=== PATIENT | male | born 1940 | race Caucasian/White ===

== ENCOUNTER 2018-05-09 12:23 | Inpatient (IN) ==
--- NOTE | 2018-05-09 12:31 | Emergency Department Note ---
Disposition Clinical Impression: Pleural effusion Disposition: Admitted As Inpatient Condition: Good Referrals: Kassandra Romero MD [Primary Care Provider] - Forms: ED Satisfaction Letter Time of Disposition: 12:33 General Adult HPI - General Chief complaint: ED Shortness of Breath/Dyspnea Stated complaint: BLANQUITA/Fluid on lung Time Seen by Provider: 05/09/18 12:25 Source: patient, family Mode of arrival: ambulatory Limitations: no limitations Nursing Notes Reviewed: Yes Vital Signs Reviewed: Yes - History of Present Illness HPI Narrative: 77 year old male presnte to the ED with complaints of right sided chest pain. He staets that this has been going on since and that it has not improved and denies fevers, productive cough, history of lung cancer, smoking, or hemopytosis. Nancy states that this has been preogressive with his dyspnea although he has not been hypoxic. Piero taes that he was having an outpatient CT and it appears that his right lung has a large pleural efffusions and it is almost opacifified. Nancy was sent to the eD for evlaution for thoracentesis and admission. Nancy is resting comfortably with stable vital and is in no acute distress. - Related Data Home Medications Medication Instructions Recorded Confirmed Metformin HCl [Glucophage] 1,000 mg PO BID 05/03/17 05/09/18 Insulin Glargine [Lantus] 14 unit SQ QPM 05/09/18 05/09/18 Allergies Allergy/AdvReac Type Severity Reaction Status Date / Time No Known Allergies Allergy Verified 07/31/17 14:44 Constitutional: Denies: fever, chills, weakness, weight change Eyes: Denies: eye pain, eye discharge, vision change ENT ED: Denies: ear pain, throat pain, dental pain, hearing loss, epistaxis, congestion, dysphagia Cardiovascular: Reports: chest pain. Denies: palpitations, dyspnea on exertion , edema, syncope Respiratory: Reports: dyspnea. Denies: cough, wheezes, hemoptysis, stridor Gastrointestinal: Denies: abdominal pain, nausea, vomiting, diarrhea, constipation, hematemesis, melena, hematochezia Genitourinary: Denies: urgency, dysuria, frequency, hematuria Musculoskeletal: Denies: back pain, neck pain, arthralgia, myalgia Integumentary: Denies: rash, abrasion, lesions Neurological: Denies: headache, weakness, numbness, paresthesias, confusion, abnormal gait, vertigo Psychiatric: Denies: anxiety, depression, suicidal thoughts, homicidal thoughts , auditory hallucinations, visual hallucinations Endocrine: Denies: fatigue Hematological/Lymphatic: Denies: easy bleeding, easy bruising Allergic/Immunologic: Denies: facial swelling, urticaria Past Medical History - Past Medical History Medical history: Reports: diabetes Psychiatric history: Reports: no psych history - Social History Smoking Status: Former smoker Smokeless Tobacco Status: No Alcohol use: Reports: rarely Drug use: Reports: none Physical Exam - General Limitations: no limitations General appearance: alert, in no apparent distress - Head Head exam: atraumatic, normocephalic, normal inspection - Eye Eye exam: Present: normal appearance, PERRL, EOMI - Expanded Eye Exam Pupils: Bilateral: reactive - ENT ENT exam: normal exam, normal oropharynx, mucous membranes moist - Expanded ENT Exam External ear exam: Present: normal external inspection Mouth exam: Present: normal external inspection Teeth exam: Present: normal inspection Throat exam: Present: normal inspection - Neck Neck exam: Present: normal inspection, full ROM, trachea midline - Chest Chest inspection: Present: normal inspection, symmetric chest wall rise - Respiratory Respiratory exam: Present: other (decreased breath sounds on the right). Absent : respiratory distress, wheezes, stridor, accessory muscle use, prolonged expiratory phase - Cardiovascular Cardiovascular exam: Present: regular rate, normal rhythm, normal heart sounds - Abdominal Exam Abdominal exam: Present: soft, Non-Tender. Absent: tenderness, distention, guarding, rebound, rigidity - Extremities Exam Extremities exam: Present: normal inspection, full ROM. Absent: tenderness, pedal edema - Expanded Upper Extremity Exam Shoulder exam: Present: normal inspection, full ROM Arm exam: Present: normal inspection, full ROM Elbow exam: Present: normal inspection, full ROM Forearm/Wrist exam: Present: normal inspection, full ROM Hand exam: Present: normal inspection, full ROM Vascular exam: Normal: capillary refill, radial pulse - Expanded Lower Extremity Exam Hip/Pelvis exam: Present: normal inspection, full ROM Upper leg exam: Present: normal inspection, full ROM Knee exam: Present: normal inspection, full ROM Lower leg exam: Present: normal inspection, full ROM Ankle exam: Present: normal inspection, full ROM Foot/toe exam: Present: normal inspection, full ROM Neurovascular/Tendon exam: Absent: motor deficit, sensory deficit, tendon deficit - Back Exam Back exam: Present: normal inspection, full ROM. Absent: tenderness - Neurological Exam Neurological exam: Present: alert, oriented X3 - Expanded Neurological Exam Patient oriented to: Present: person, place, time Coma Scale Eye Opening: Spontaneous Coma Scale Motor Response: Obeys Commands Coma Scale Verbal Response: Oriented Coma Scale Total: 15 - Psychiatric Psychiatric exam: Present: normal affect, normal mood - Skin Skin exam: Present: warm, dry, intact, normal color Course Course Narrative: we will do cardiopulmonary workup and then consult IR for thoracentesis or chest tube placement for drainaige of material. Then admit to medicine. - Reevaluation(s) Reevaluation #1: updated patinet and family and they are agreeable to plan Time: 13:34 - Consultations Consultation #1: dicussed case with Dr. Ribeiro (IR) who will be draining him today. WE will admit to medicine. I have placed orderes for pleural fluid. Patient is in no acute distress. Time: 13:06 Consultation #2: discussed case with Dr. Dsouza and he has accepted patine to this service Time: 13:34 Vital Signs Temperature 97.7 F 05/09/18 12:24 Pulse Rate 77 05/09/18 12:24 Respiratory Rate 18 05/09/18 12:24 Blood Pressure 136/97 05/09/18 12:24 O2 Sat by Pulse Oximetry 95 05/09/18 12:24 Temperature 97.7 F 05/09/18 12:24 Pulse Rate 77 05/09/18 12:24 Respiratory Rate 18 05/09/18 12:24 Blood Pressure 136/97 05/09/18 12:24 O2 Sat by Pulse Oximetry 94 05/09/18 12:41 Oxygen Delivery Oxygen Delivery Room Air Medical Decision Making - Medical Records Medical records reviewed: Yes I reviewed the patient's medical records. - Lab Data Lab results reviewed: Yes I reviewed the patient's lab results. Result diagrams: 05/09/18 12:39 05/09/18 12:39 Lab Results 05/09/18 05/09/18 05/09/18 Range/Units 12:39 12:39 12:39 WBC (4.3-11.1) K/mcL RBC (4.19-5.50) M/mcL Hgb (12.9-16.9) g/dL Hct (37.5-50.1) % MCV (83.0-100.0) fL MCH (28.0-33.3) pg MCHC (31.6-35.5) g/dL RDW (11.5-14.5) % Plt Count (140-400) K/mcL MPV (9.4-12.4) fL Immature Gran % (0-4) % Seg Neutrophils % % Lymphocytes % % Monocytes % % Eosinophils % % Basophils % % Neutrophils # (1.6-8.9) K/mcL Lymphocytes # (0.6-4.6) K/mcL Monocytes # (0.0-1.3) K/mcL Eosinophils # (0.0-0.6) K/mcL Basophils # (0.0-0.2) K/mcL PT 12.0 (9.4-12.1) Seconds INR 1.1 APTT 32.8 (26.0-36.0) Seconds Sodium (136-145) mEq/L Potassium (3.5-5.1) mEq/L Chloride (98-107) mEq/L Carbon Dioxide (23-29) mEq/L BUN (8-23) mg/dL Creatinine (0.70-1.30) mg/dL Est GFR ( Amer) (> 60) Est GFR (Non-Af Amer) (> 60) BUN/Creatinine Ratio (6-26) Glucose (70-105) mg/dL Calculated Osmolality (280-300) Calcium (8.6-10.3) mg/dL Total Bilirubin 0.5 (0.3-1.0) mg/dL Direct Bilirubin 0.1 (0.0-0.2) mg/dL Indirect Bilirubin 0.4 (0.0-1.2) mg/dL AST 10 L (13-39) Units/L ALT 6 L (7-52) Units/L Alkaline Phosphatase 89 (34-104) Units/L Troponin I (< 0.04) ng/mL B-Natriuretic Peptide 18 (Less than 100) pg/mL Serum Total Protein 6.6 (6.4-8.9) g/dL Albumin 3.8 (3.5-5.7) g/dL Globulin 2.8 (2.4-3.5) g/dL Albumin/Globulin Ratio 1.4 (1.1-2.2) Lipase 35 (11-82) Units/L 05/09/18 05/09/18 Range/Units 12:39 12:39 WBC 6.2 (4.3-11.1) K/mcL RBC 5.28 (4.19-5.50) M/mcL Hgb 16.5 (12.9-16.9) g/dL Hct 50.4 H (37.5-50.1) % MCV 95.5 (83.0-100.0) fL MCH 31.3 (28.0-33.3) pg MCHC 32.7 (31.6-35.5) g/dL RDW 12.6 (11.5-14.5) % Plt Count 231 (140-400) K/mcL MPV 10.1 (9.4-12.4) fL Immature Gran % 0.2 (0-4) % Seg Neutrophils % 62.1 % Lymphocytes % 22.8 % Monocytes % 7.3 % Eosinophils % 6.3 % Basophils % 1.3 % Neutrophils # 3.8 (1.6-8.9) K/mcL Lymphocytes # 1.4 (0.6-4.6) K/mcL Monocytes # 0.5 (0.0-1.3) K/mcL Eosinophils # 0.4 (0.0-0.6) K/mcL Basophils # 0.1 (0.0-0.2) K/mcL PT (9.4-12.1) Seconds INR APTT (26.0-36.0) Seconds Sodium 138 (136-145) mEq/L Potassium 4.3 (3.5-5.1) mEq/L Chloride 106 (98-107) mEq/L Carbon Dioxide 25 (23-29) mEq/L BUN 17 (8-23) mg/dL Creatinine 1.08 (0.70-1.30) mg/dL Est GFR ( Amer) > 60 (> 60) Est GFR (Non-Af Amer) > 60 (> 60) BUN/Creatinine Ratio 16 (6-26) Glucose 193 H (70-105) mg/dL Calculated Osmolality 293 (280-300) Calcium 8.8 (8.6-10.3) mg/dL Total Bilirubin (0.3-1.0) mg/dL Direct Bilirubin (0.0-0.2) mg/dL Indirect Bilirubin (0.0-1.2) mg/dL AST (13-39) Units/L ALT (7-52) Units/L Alkaline Phosphatase (34-104) Units/L Troponin I < 0.03 (< 0.04) ng/mL B-Natriuretic Peptide (Less than 100) pg/mL Serum Total Protein (6.4-8.9) g/dL Albumin (3.5-5.7) g/dL Globulin (2.4-3.5) g/dL Albumin/Globulin Ratio (1.1-2.2) Lipase (11-82) Units/L - Radiology Data Radiology results reviewed: Yes I reviewed the patient's radiology results. - EKG Data EKG #1 EKG attestation: Yes I reviewed and interpreted this EKG. EKG results narrative: NSR with rate of 77, NO STEMI. normla intervals. no old ekg. 1228
[2018-05-09 13:14] LABS: Albumin 3.8 g/dL (3.5-5.7); Albumin/Globulin Ratio 1.4 (1.1-2.2); Bilirubin,Direct 0.1 mg/dL (0.0-0.2); Bilirubin,Indirect 0.4 mg/dL (0.0-1.2); Bilirubin,Total 0.5 mg/dL (0.3-1.0); Globulin 2.8 g/dL (2.4-3.5); Total Protein 6.6 g/dL (6.4-8.9)
[2018-05-09 13:16] LABS: BUN/Creatinine Ratio 16 (6-26); Blood Urea Nitrogen 17 mg/dL (8-23); Calcium 8.8 mg/dL (8.6-10.3); Carbon Dioxide 25 mEq/L (23-29); Chloride 106 mEq/L (98-107); Glucose 193 mg/dL (70-105); Osmolality,Calculated 293 (280-300); Potassium 4.3 mEq/L (3.5-5.1); Sodium 138 mEq/L (136-145); eGFR For African Americans > 60 (> 60); eGFR For Non-African Americans > 60 (> 60)
[2018-05-09 13:17] LABS: Basophils # 0.1 K/mcL (0.0-0.2); Basophils % 1.3 %; Eosinophils # 0.4 K/mcL (0.0-0.6); Eosinophils % 6.3 %; Hematocrit 50.4 % (37.5-50.1); Hemoglobin 16.5 g/dL (12.9-16.9); Immature Granulocytes % 0.2 % (0-4); Lymphocytes # 1.4 K/mcL (0.6-4.6); Lymphocytes % 22.8 %; Mean Corpuscular HGB Conc 32.7 g/dL (31.6-35.5); Mean Corpuscular Hemoglobin 31.3 pg (28.0-33.3); Mean Corpuscular Volume 95.5 fL (83.0-100.0); Mean Platelet Volume 10.1 fL (9.4-12.4); Monocytes # 0.5 K/mcL (0.0-1.3); Monocytes % 7.3 %; Neutrophils # 3.8 K/mcL (1.6-8.9); Platelet Count 231 K/mcL (140-400); Red Blood Count 5.28 M/mcL (4.19-5.50); Red Cell Distribution Width 12.6 % (11.5-14.5); Segmented Neutrophils % 62.1 %; Troponin I < 0.03 ng/mL (< 0.04)
[2018-05-09 13:23] LABS: INR 1.1
[2018-05-09 13:26] LABS: Activated Partial Thrombo Time 32.8 Seconds (26.0-36.0)
[2018-05-09] MEDS ORDERED: D5% in Water 1,000 ML IVC PRN (13:57)
[2018-05-09] MEDS ORDERED: *HR* Dextrose 50 % in Water (Syg) 50 ML SYRINGE IVP PRN (13:57)
[2018-05-09] MEDS ORDERED: Naloxone 0.4 MG/ML INJ IVP PRN (13:57)
[2018-05-09] MEDS ORDERED: Dextrose Gel 15 GM/37.5 ML TUBE PO PRN ×2 (13:57)
[2018-05-09] MEDS ORDERED: Isovue-370 500 ML INFUS..BTL IV ONE (13:59)
--- NOTE | 2018-05-09 14:08 | Internal Med History&Physical ---
Date of Encounter: 05/09/18 Time of Encounter: 14:04 Internal Medicine - H&P: HPI Chief complaint: Shortness of breath History of present illness: Mr. Francis is a 77 year old male who presents with acute onset of shortness of breath found to have a large right-sided pleural effusion suspicious for malignant effusion. He reports progressive shortness of breath since last that had been worsening over the last day to the extent that he was not able to ambulate around his house without getting winded. He denies any fevers chills or symptoms of infection. On review of symptoms he denies any bone or body aches He is a retired schoolteacher teacher and has denied history of chronic smoking. He smoked for 4 years less than a pack a day while in college but had quit more than 50 years ago. He reports that he might have asbesto exposure in his school. He has a family history of breast cancer in his mother, back cancer in her father and lung cancer in a sister who smoked EKG personally reviewed with rate 77, normal sinus rhythm CT/CT angio chest IMPRESSION: 1. Large right pleural effusion with near complete collapse of the right upper, middle, and lower lobes. 2. Questionable prominent soft tissue in the right perihilar region. Underlying mass cannot be excluded. Evaluation is limited by a large pleural effusion and right lung collapse. 3. Lucent lesion in the T12 vertebral body, concerning for metastatic disease. Nonspecific lesions are also seen in the T9 and T1 vertebral bodies as described. 4. Ill-defined hypodensity in the right hepatic lobe measuring 13 , incompletely visualized and characterized. Finding is concerning for malignancy given the additional findings in the chest and bones. Dedicated CT of the abdomen and pelvis with IV contrast versus PET/CT is recommended to assess for other sites of malignancy. 5. No pulmonary embolus. Past Med Surg Social Fam HX - Past Medical History Medical history: diabetes Psychiatric history: no psych history - Past Surgical History Surgical History: no surgical history - Social History Smoking Status: Former smoker Smokeless Tobacco Status: No Alcohol use: rarely Drug use: none Internal Medicine - H&P: Meds Metformin HCl [Glucophage] 1,000 mg PO BID 05/03/17 [History] Insulin Glargine [Lantus] 14 unit SQ QPM 05/09/18 [History] 3 Allergy/AdvReac Type Severity Reaction Status Date / Time No Known Allergies Allergy Verified 07/31/17 14:44 All Systems PM: A 10-system review of systems was performed and is negative for pertinent findings except as documented above in the HPI. Review of systems: ROS 14 point review of systems reviewed as best as possible given presentation. Pertinent positive or negative as per HPI or otherwise reviewed as negative - Constitutional Vitals: Temp Pulse Resp BP Pulse Ox 97.7 F 77 18 136/97 94 05/09/18 12:24 05/09/18 12:24 05/09/18 12:24 05/09/18 12:24 05/09/18 12:41 Exam: General - AAO x 3 Psych - Appropriate affect/speech. No agitation Eyes - BRENNAN. Eye lids intact. No scleral icterus Neuro - No gross peripheral or central neuro deficits on inspection Heart - Sinus. RRR. S1 and S2 present. No added HS/murmurs appreciated. No elevated JVD appreciated. Lung - decreased air entry along the right lung , No crackles/wheezes appreciated GI - Soft, non-tender. No hepatosplenomegaly/ascites. BS+ - No CVA/suprapubic tenderness or palpable bladder distension Skin - Intact. No rash/petechiae/ecchymosis. Warm extremities Internal Med - H&P Results - Labs CBC & Chem 7: 05/09/18 12:39 05/09/18 12:39 Labs: Short CBC 05/09/18 Range/Units 12:39 WBC 6.2 (4.3-11.1) K/mcL Hgb 16.5 (12.9-16.9) g/dL Hct 50.4 H (37.5-50.1) % Plt Count 231 (140-400) K/mcL Neutrophils # 3.8 (1.6-8.9) K/mcL BMP 05/09/18 12:39 Sodium 138 Potassium 4.3 Chloride 106 Carbon Dioxide 25 BUN 17 Creatinine 1.08 Glucose 193 H Calcium 8.8 Cardiac Enzymes 05/09/18 Range/Units 12:39 Troponin I < 0.03 (< 0.04) ng/mL Liver Function 05/09/18 Range/Units 12:39 Total Bilirubin 0.5 (0.3-1.0) mg/dL Direct Bilirubin 0.1 (0.0-0.2) mg/dL AST 10 L (13-39) Units/L ALT 6 L (7-52) Units/L Alkaline Phosphatase 89 (34-104) Units/L Albumin 3.8 (3.5-5.7) g/dL - Assessment and plan (1) Pleural effusion Current Visit: Yes Status: Acute Assessment and plan: Malignant effusion until proven otherwise Consult IR for therapeutic and diagnostic tap with cytology. y (2) Metastatic cancer Current Visit: Yes Status: Acute Assessment and plan: Consult oncology to evaluate for management Suspicious for lung primary Awaiting cell block analysis by pathology CT abdomen pelvis for further staging Consider liver biopsy if more tissue is needed for diagnosis or additional mutational testing (3) DMII (diabetes mellitus, type 2) Current Visit: Yes Status: Acute Assessment and plan: We will hold Lantus and metformin. We would start insulin sliding scale while inpatient Qualifiers: Diabetes mellitus usp insulin use: with personnel generalist manager use Diabetes mellitus complication status: without complication Qualified Code(s): E11.9 - Type 2 diabetes mellitus without complications; Z79.4 - retirement (current) use of insulin - Time Spent With Patient Total time spent is greater than 50% in coordination of care (as documented) at patient's floor/unit and/or counseling patient:
--- NOTE | 2018-05-09 14:46 | Procedure Note ---
Date of procedure: 05/09/18 Procedure: Thoracentesis Date: 05/09/2018 Time: 1420 Indication: Large pleural effusion Resident: Puneet Cordon DO Attending: Jessica Ribeiro MD A time-out was completed verifying correct patient, procedure, site, positioning , and special equipment if applicable. The patients Right side was prepped and draped in a sterile manner after the appropriate infiltration level was confirmed by ultrasound. 1% lidocaine was used anesthetize the surrounding skin. A finder needle was then used to locate fluid and clear yellow fluid was obtained. A 10-blade scalpel used to make the incision. The thoracentesis catheter was then threaded without difficulty. The patient had 1600mL of redish/ yellow fluid removed. Jessica Ribeiro MD was present for the entire procedure. A post -procedure chest x-ray was ordered and the fluid will be sent for several studies. Estimated Blood Loss: 0ml The patient tolerated the procedure well and there were no complications. Anesthesia: local Was there an special ed assistant present: No Estimated blood loss (cc): 0 Specimen: Pleural Fluid Condition: stable
[2018-05-09 15:47] LABS: Appearance of Pleural Fl Cloudy (Clear)
[2018-05-09] MEDS: Insulin LISPRO 300 UNITS/3 ML VIAL SQ SCH ×2 (16:35→21:09)
--- NOTE | 2018-05-09 22:08 | Electrocardiograph Report ---
[facility] [employer] Test Date: 2018-05-09 Pat Name: Alexandru Francis Department: 103 Room: 3B48 Gender: M Resource Technician: MSC : [id number] Requested By: Peace Up Order Number: [id number] Reading MD: Efe Contreras Measurements Intervals [place] Rate: 77 P: 57 CO: 199 QRS: -25 QRSD: 103 T: 11 QT: 373 QTc: 405 Interpretive Statements SINUS RHYTHM INFERIOR MYOCARDIAL INFARCTION Electronically Signed On 05-09-2018 22:07:22 EDT by Efe Contreras
[2018-05-10] MEDS: *HR* Enoxaparin 40 MG/0.4 ML SYRINGE SQ SCH (05:24)
--- NOTE | 2018-05-10 06:34 | Pulmonology Consult Note ---
Date of Encounter: 05/10/18 Time of Encounter: 09:52 Assessment and Plan (1) Pleural effusion Current Visit: Yes Status: Acute I review the imaging with the patient. It is notable for large right-sided pleural effusion that is aged Hubbard nature lymphocytic predominant. It was tolu in color and these features are suggestive of malignancy although not conclusive for malignancy. Final cytology is pending. Recommend likely repeat thoracentesis tomorrow to for another sample and for therapeutic reasons. May be a candidate for Pleurx catheter down the line. I did explain to him that this appears to be most likely malignant but cannot exclude chronic inflammation. No evidence of heart kidney or liver disease that would also cause pleural effusion. Unfortunately because large size of the pleural fluid accumulation is unclear to if there is lung involvement on the right side were not with regards to cancer. However with serial thoracentesis and may be easier to delineate underlying lung anatomy. (2) Liver lesion Current Visit: Yes Status: Acute CT of the abdomen and pelvis was reviewed is significant for a low-density lesion which is indeterminate within the right hepatic lobe. 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 Recommend formal oncology consultation and biopsy of liver lesion versus metastatic spinal lesions. Pulmonary will continue to follow (3) Metastatic cancer Current Visit: Yes Status: Acute Patient has bony metastases and evidence of a liver lesion CONCERNING for metastatic process. Unclear primary. Agree was formal oncology consultation History of Present Illness Consult date: 05/10/18 Requesting physician: Elkin Smith Reason for consult: pleural effusion Chief complaint: Difficulty in breathing History of present illness: This is a very pleasant 77-year-old gentleman who presented for increasing chest pain and shortness of breath that started approximately of last week. Came to the ED yesterday had chest x-ray performed in CT of the chest which was notable for large right-sided pleural effusion status post thoracentesis. Plan was consulted for further evaluation of this. Patient is essentially a lifelong nonsmoker. He did smoke for a few years in college but this was very minimal and he quit in the late 1950s. No personal history of malignancy family history of breast cancer in the mother and father had cancer that was in his spine although is unclear if that was primary or metastatic disease. He has a sister that of lung cancer but this was in the context of her being a very heavy smoker. 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 No significant exposures although he may been exposed to asbestos in the school where he taught. He does keep exotic pets at home including apparent and a cockatiel. Denies any sick contacts or recent travel. Denies fevers chills weight loss or hemoptysis Past Med Surg Social Fam HX - Past Medical History Medical history: diabetes Psychiatric history: no psych history - Past Surgical History Surgical History: no surgical history - Social History Smoking Status: Former smoker Smokeless Tobacco Status: No Alcohol use: rarely Drug use: none - Family History Mother Living Status: Hx Family Cancer: Yes (breast cancer) Father Living Status: Hx Family Cancer: Yes (spinal cancer) Sister Living Status: Hx Family Cancer: Yes (lung cancer) Medications and Allergies Metformin HCl [Glucophage] 1,000 mg PO BID 05/03/17 [History] Insulin Glargine [Lantus] 14 unit SQ QPM 05/09/18 [History] 3 Allergy/AdvReac Type Severity Reaction Status Date / Time No Known Allergies Allergy Verified 07/31/17 14:44 All Systems: The remainder of the systems were reviewed and are negative Physical Examination Vital Signs: Vital Signs, Last 4 Hours Temp Pulse Resp BP Pulse Ox 05/10/18 02:45 98.1 F 79 16 121/76 91 General appearance: no acute distress Eyes: nonicteric ENT: oropharynx moist Mallampati (class): 1 Neck: supple, no lymphadenopathy Effort: normal Auscultation: left: clear, right: diminished breath sounds Cardiovascular: regular rate and rhythm Gastrointestinal: normoactive bowel sounds, soft, non-tender, other (No hepatosplenomegaly) Integumentary: normal Extremities: no cyanosis, no edema, no clubbing Musculoskeletal: no deformities normal mental status, non-focal exam mood appropriate Results - Laboratory Findings CBC and BMP: 05/10/18 05:42 05/10/18 05:42 PT/INR, D-dimer PT 12.0 Seconds (9.4-12.1) 05/09/18 12:39 Abnormal lab findings: Abnormal lab results Hct 50.4 % (37.5-50.1) H 05/09/18 12:39 Glucose 193 mg/dL (70-105) H 05/09/18 12:39 AST 10 Units/L (13-39) L 05/09/18 12:39 ALT 6 Units/L (7-52) L 05/09/18 12:39 Pleural Appearance Cloudy (Clear) A 05/09/18 14:30 - Diagnostic Findings Chest x-ray: report reviewed, image reviewed CT scan - chest: report reviewed, image reviewed - Clinical Findings Intake & Output: Intake & Output 05/09/18 05/09/18 05/10/18 15:59 23:59 07:59 Intake Total 240 / 240 Balance 240 / 240 Weight 82.4 kg Consult Discharge Plan - Plan Referrals: Kassandra Romero MD [Primary Care Provider] -
[2018-05-10 06:43] LABS: Basophils # 0.1 K/mcL (0.0-0.2); Basophils % 1.3 %; Eosinophils # 0.4 K/mcL (0.0-0.6); Eosinophils % 7.8 %; Hematocrit 45.7 % (37.5-50.1); Hemoglobin 15.3 g/dL (12.9-16.9); Immature Granulocytes % 0.2 % (0-4); Immature Platelets 2.9 % (1.1-6.1); Lymphocytes # 1.1 K/mcL (0.6-4.6); Lymphocytes % 20.8 %; Mean Corpuscular HGB Conc 33.5 g/dL (31.6-35.5); Mean Corpuscular Hemoglobin 31.6 pg (28.0-33.3); Mean Corpuscular Volume 94.4 fL (83.0-100.0); Mean Platelet Volume 10.2 fL (9.4-12.4); Monocytes # 0.4 K/mcL (0.0-1.3); Monocytes % 7.3 %; Neutrophils # 3.4 K/mcL (1.6-8.9); Platelet Count 227 K/mcL (140-400); Red Blood Count 4.84 M/mcL (4.19-5.50); Red Cell Distribution Width 12.5 % (11.5-14.5); Segmented Neutrophils % 62.6 %
[2018-05-10 06:50] LABS: Alanine Aminotransferase 5 Units/L (7-52); Albumin 3.1 g/dL (3.5-5.7); Albumin/Globulin Ratio 1.2 (1.1-2.2); Alkaline Phosphatase 73 Units/L (34-104); Aspartate Amino Transferase 11 Units/L (13-39); BUN/Creatinine Ratio 16 (6-26); Bilirubin,Total 0.6 mg/dL (0.3-1.0); Blood Urea Nitrogen 15 mg/dL (8-23); Calcium 8.1 mg/dL (8.6-10.3); Carbon Dioxide 23 mEq/L (23-29); Chloride 108 mEq/L (98-107); Globulin 2.5 g/dL (2.4-3.5); Glucose 160 mg/dL (70-105); Osmolality,Calculated 290 (280-300); Potassium 4.2 mEq/L (3.5-5.1); Sodium 138 mEq/L (136-145); Total Protein 5.6 g/dL (6.4-8.9); eGFR For African Americans > 60 (> 60); eGFR For Non-African Americans > 60 (> 60)
[2018-05-10] MEDS: Insulin LISPRO 300 UNITS/3 ML VIAL SQ SCH ×4 (08:55→22:48)
--- NOTE | 2018-05-10 13:14 | Internal Med Progress Note ---
Date of Encounter: 05/10/18 Time of Encounter: 13:14 - Assessment and plan (1) Pleural effusion Current Visit: Yes Status: Acute Assessment and plan: Per imaging large right-sided pleural effusion Has artery had 1.6 L pleural fluid drained; tolu in color, concerning for malignancy final pathology pending Will likely undergo additional thoracentesis tomorrow for additional drainage Concerning for metastatic process with liver lesions, and T9-T1 vertebral body lesions Recommend PET scan-to complete next Tuesday pulmonology following appreciate recommendations oncology following appreciate recommendations (2) Metastatic cancer Current Visit: Yes Status: Acute Assessment and plan: Suspicious for lung primary CT abdomen pelvis with liver lesions evidence of possible spinal metastatic disease recommend PET scan Consider liver biopsy if more tissue is needed for diagnosis or additional mutational testing pulmonology and oncology following; appreciate your input (3) DMII (diabetes mellitus, type 2) Current Visit: Yes Status: Acute Assessment and plan: Continue insulin sliding scale while inpatient Qualifiers: Diabetes mellitus termite inspector insulin use: with termite inspector use Diabetes mellitus complication status: without complication Qualified Code(s): E11.9 - Type 2 diabetes mellitus without complications; Z79.4 - termite inspector (current) use of insulin - Time Spent With Patient Total time spent is greater than 50% in coordination of care (as documented) at patient's floor/unit and/or counseling patient: 25 - 35 minutes - Subjective Interval history: Patient seen and examined at bedside today. No acute changes overnight. Patient reported that his shortness of breath has improved immensely. He is no longer dyspneic with ambulation. Resting comfortably on room air. - Constitutional Vitals: Temp Pulse Resp BP Pulse Ox 97.9 F 77 17 165/96 94 05/10/18 12:14 05/10/18 12:14 05/10/18 12:14 05/10/18 12:14 05/10/18 12:14 - Head Head exam: Present: atraumatic, normocephalic - Eye Eye exam: Present: PERRL, conjuntiva pink, sclera anicteric Pupils: Present: PERRL - Neck Neck exam general surgery: Present: supple, trachea midline. Absent: lymphadenopathy - Respiratory Respiratory exam: Present: decreased breath sounds, CTAB. Absent: accessory muscle use, rales, rhonchi, wheezes - Cardiovascular Cardiovascular exam: Present: RRR, +S1, +S2. Absent: diastolic murmur, gallop, rubs, systolic murmur - GI/Abdominal GI/Abdominal exam: Present: normal bowel sounds, soft, no peritoneal signs. Absent: distended, tenderness - Extremities Exam Extremities exam: Present: warm, radial pulses palpable and symmetrical. Absent : calf tenderness, cyanotic, pedal edema - Neurological Exam Neurological exam: Present: CN II-XII intact, oriented X3, no focal deficits. Absent: pronater drift, facial droop, speech deficit - Skin Skin exam: Present: dry, intact Internal Medicine: Result - Labs CBC & Chem 7: 05/10/18 05:42 05/10/18 05:42 Labs: Short CBC 05/10/18 Range/Units 05:42 WBC 5.5 (4.3-11.1) K/mcL Hgb 15.3 (12.9-16.9) g/dL Hct 45.7 (37.5-50.1) % Plt Count 227 (140-400) K/mcL Neutrophils # 3.4 (1.6-8.9) K/mcL BMP 05/10/18 05:42 Sodium 138 Potassium 4.2 Chloride 108 H Carbon Dioxide 23 BUN 15 Creatinine 0.92 Glucose 160 H Calcium 8.1 L Liver Function 05/10/18 Range/Units 05:42 Total Bilirubin 0.6 (0.3-1.0) mg/dL AST 11 L (13-39) Units/L ALT 5 L (7-52) Units/L Alkaline Phosphatase 73 (34-104) Units/L Albumin 3.1 L (3.5-5.7) g/dL - ABG Interpretation ABG results: PT/INR, D-dimer PT 12.0 Seconds (9.4-12.1) 05/09/18 12:39 Consult Discharge Plan - Plan Referrals: Kassandra Romero MD [Primary Care Provider] -
--- NOTE | 2018-05-10 16:50 | Oncology Inp Consult Note ---
<Ghazala Cummins - Last Filed: 05/11/18 09:11> Date of Encounter: 05/10/18 Time of Encounter: 12:30 Assessment and Plan (1) Pleural effusion Status: Acute Assessment and plan: Imaging revealed large right pleural effusion, questionable mass in the right perihilar region, indeterminate liver lesion, and findings concerning for bone metastases. Discussed imaging findings at bedside today with patient, patients family which are concerning for malignancy. Findings are concerning for metastatic lung cancer, although given patients history of essentially a non smoker and he has been in relative good health up until about 1 week ago, while primary lung cancer is certainly, his history raises question of other potential etiology. Other differentials may include mesothelioma with a history of occupational asbestos exposure, lymphoma, melanoma, among others. At this time we will plan to await cytology from his thoracentesis which was performed yesterday. He is also planned for a potential second thoracentesis tomorrow, we will assess cytology with this as well. Discussed the possibility of placing pleurx catheter with pulmonology which may be done in the near future. We will begin the process to schedule a PET scan for next Tuesday. If both cytologies are negative, dependant upon results of PET, will likely plan for biopsy of either liver lesion (if PET active) or bone lesion. Please refer to Dr. Cerna's attestation below for additional details. - Data of Consult Patient: new to practice Consult date: 05/10/18 Requesting Physician: Papa Walls Primary Care Provider: Kassandra Burns - Consult Narrative Reason for consult: Right pleural effusion, liver lesion, bony metastatic disease History of present illness: Mr. Francis is a 77 year old male who presented to ER on 05/09/2018 with report of increasing SOB over the past 6 days. The SOB had increased to the point where he was unable to walk about in his house. He denies pain, fever or chills. CTA chest revealed large right pleural effusion with near complete collapse of the right upper, middle, and lower lobes. 2. Questionable prominent soft tissue in the right perihilar region. Underlying mass cannot be excluded. 3. Lucent lesion in the T12 vertebral body, concerning for metastatic disease. Nonspecific lesions are also seen in the T9 and T1 vertebral bodies.4. Ill- defined hypodensity in the right hepatic lobe measuring 13 mm, incompletely visualized and characterized. Finding is concerning for malignancy given the additional findings in the chest and bones. CT abdomen/pelvis with IV contrast revealed indeterminate liver lesion however, given history it is potentially concerning for neoplasm along with evidence of likely bony metastatic disease. He had a thoracentesis on 05/09 with removal of 1600 tolu colored fluid. He is a retired schoolteacher teacher and has denied history of chronic smoking (smoked in college for a short period about 60 years ago). He denies weight loss or appetite changes. He states that up until about 1 week ago he was active and healthy and helped to garden, mow the lawn etc. He reports that he might have asbesto exposure in his school. Family history of cancer includes patient mother, of breast cancer in her 80's; patients father of unknown cancer, patients sister of lung cancer, smoker. Past Med Surg Social Fam HX - Past Medical History Medical history: diabetes Psychiatric history: no psych history - Past Surgical History Surgical History: no surgical history - Social History Smoking Status: Former smoker Smokeless Tobacco Status: No Alcohol use: rarely Drug use: none - Family History Mother Living Status: Hx Family Cancer: Yes (breast cancer) Father Living Status: Hx Family Cancer: Yes (spinal cancer) Sister Living Status: Hx Family Cancer: Yes (lung cancer) Medications and Allergies Metformin HCl [Glucophage] 1,000 mg PO BID 05/03/17 [History] Insulin Glargine [Lantus] 14 unit SQ QPM 05/09/18 [History] 3 Allergy/AdvReac Type Severity Reaction Status Date / Time No Known Allergies Allergy Verified 07/31/17 14:44 Constitutional: Present: weakness. Absent: anorexia, chills, fatigue, fever(s) , weight loss Eyes: Absent: change in vision Nose, mouth and throat: Absent: dysphagia Cardiovascular: Absent: chest pain Respiratory: Present: as per HPI, dyspnea. Absent: cough, hemoptysis Gastrointestinal: Absent: abdominal pain, hematochezia, melena, nausea, vomiting Additional comments: denies dysuria Musculoskeletal: Absent: back pain, numbness, tingling Integumentary: Absent: rash, wounds Neurological: Absent: focal weakness, frequent falls, paresthesias Hematologic/Lymphatic: Present: as per HPI Oncology - Exam - Constitutional Vitals: Temp Pulse Resp BP Pulse Ox 98.0 F 82 18 151/82 93 05/10/18 16:31 05/10/18 16:31 05/10/18 16:31 05/10/18 16:31 05/10/18 16:31 General appearance: cooperative, no acute distress, no febrile - Head Head exam: Present: atraumatic - ENT ENT exam: Present: mucous membranes moist - Respiratory Additional comments: RLL-decreased, Left CTA - Cardiovascular Cardiovascular exam: Present: RRR, +S1, +S2 - GI/Abdominal GI/Abdominal exam: Present: normal bowel sounds, soft. Absent: tenderness - Extremities Exam Extremities exam: Absent: calf tenderness - Neurological Exam Neurological exam: Present: alert, oriented X3, no focal deficits, strengths equal and symetr throughout - Psychiatric Psychiatric exam: Present: normal affect, normal mood - Skin Skin exam: Present: dry, intact, normal color, warm Oncology - Results Labs: 3 05/10/18 05/10/18 05:42 05:42 WBC 5.5 RBC 4.84 Hgb 15.3 Hct 45.7 MCV 94.4 MCH 31.6 MCHC 33.5 RDW 12.5 Plt Count 227 MPV 10.2 Immature Gran % 0.2 Seg Neutrophils % 62.6 Lymphocytes % 20.8 Monocytes % 7.3 Eosinophils % 7.8 Basophils % 1.3 Neutrophils # 3.4 Lymphocytes # 1.1 Monocytes # 0.4 Eosinophils # 0.4 Basophils # 0.1 Immature Plt Fraction 2.9 Sodium 138 Potassium 4.2 Chloride 108 H Carbon Dioxide 23 BUN 15 Creatinine 0.92 Est GFR ( Amer) > 60 Est GFR (Non-Af Amer) > 60 BUN/Creatinine Ratio 16 Glucose 160 H Calculated Osmolality 290 Calcium 8.1 L Total Bilirubin 0.6 AST 11 L ALT 5 L Alkaline Phosphatase 73 Serum Total Protein 5.6 L Albumin 3.1 L Globulin 2.5 Albumin/Globulin Ratio 1.2 Consult Discharge Plan - Plan Referrals: Kassandra Romero MD [Primary Care Provider] - <Rajiv Cerna - Last Filed: 05/11/18 10:24> Date of Encounter: 05/10/18 - Data of Consult Requesting Physician: Papa Walls Primary Care Provider: Kassandra Schaeffer-Fis - Consult Narrative History of present illness: Mr. Francis is a 77 year old male Oncology - Exam - Constitutional Vitals: Temp Pulse Resp BP Pulse Ox 98.3 F 81 16 143/69 93 05/11/18 07:49 05/11/18 07:49 05/11/18 07:49 05/11/18 07:49 05/11/18 07:49 Oncology - Results Labs: 3 05/11/18 05/11/18 05/10/18 06:26 06:26 20:30 WBC 6.7 RBC 4.75 Hgb 14.6 Hct 44.5 MCV 93.7 MCH 30.7 MCHC 32.8 RDW 12.4 Plt Count 234 MPV 10.0 Immature Gran % 0.4 Seg Neutrophils % 62.1 Lymphocytes % 17.3 Monocytes % 7.3 Eosinophils % 11.4 Basophils % 1.5 Neutrophils # 4.2 Lymphocytes # 1.2 Monocytes # 0.5 Eosinophils # 0.8 H Basophils # 0.1 Immature Plt Fraction Sodium 137 Potassium 4.1 Chloride 107 Carbon Dioxide 25 BUN 14 Creatinine 0.99 Est GFR ( Amer) > 60 Est GFR (Non-Af Amer) > 60 BUN/Creatinine Ratio 14 Glucose 197 H POC Glucose 184 H Calculated Osmolality 290 Calcium 8.1 L Total Bilirubin AST ALT Alkaline Phosphatase Serum Total Protein Albumin Globulin Albumin/Globulin Ratio 3 05/10/18 05/10/18 05/10/18 16:33 12:16 07:44 WBC RBC Hgb Hct MCV MCH MCHC RDW Plt Count MPV Immature Gran % Seg Neutrophils % Lymphocytes % Monocytes % Eosinophils % Basophils % Neutrophils # Lymphocytes # Monocytes # Eosinophils # Basophils # Immature Plt Fraction Sodium Potassium Chloride Carbon Dioxide BUN Creatinine Est GFR ( Amer) Est GFR (Non-Af Amer) BUN/Creatinine Ratio Glucose POC Glucose 183 H 182 H 150 H Calculated Osmolality Calcium Total Bilirubin AST ALT Alkaline Phosphatase Serum Total Protein Albumin Globulin Albumin/Globulin Ratio 3 05/10/18 05/10/18 05:42 05:42 WBC 5.5 RBC 4.84 Hgb 15.3 Hct 45.7 MCV 94.4 MCH 31.6 MCHC 33.5 RDW 12.5 Plt Count 227 MPV 10.2 Immature Gran % 0.2 Seg Neutrophils % 62.6 Lymphocytes % 20.8 Monocytes % 7.3 Eosinophils % 7.8 Basophils % 1.3 Neutrophils # 3.4 Lymphocytes # 1.1 Monocytes # 0.4 Eosinophils # 0.4 Basophils # 0.1 Immature Plt Fraction 2.9 Sodium 138 Potassium 4.2 Chloride 108 H Carbon Dioxide 23 BUN 15 Creatinine 0.92 Est GFR ( Amer) > 60 Est GFR (Non-Af Amer) > 60 BUN/Creatinine Ratio 16 Glucose 160 H POC Glucose Calculated Osmolality 290 Calcium 8.1 L Total Bilirubin 0.6 AST 11 L ALT 5 L Alkaline Phosphatase 73 Serum Total Protein 5.6 L Albumin 3.1 L Globulin 2.5 Albumin/Globulin Ratio 1.2 - Attending Attestation Seen and examined patient and agree with assessment and plan. Patient has no significant smoking history, no significant pulmonary carcinogen exposure...therefore, his presentation is quite perplexing. Await cytology. Differential is broad. I discussed with the patient and the family that I do suspect cancer but cytology and possibly bx will be necessary. Given the acuity of his symptoms (NSOH until 1 week ago), this could very well be an atypical presentation of lymphoma. Agree with repeat thoracentesis and then PET as outpatient and awaiting cytology results.
[2018-05-11] MEDS: *HR* Enoxaparin 40 MG/0.4 ML SYRINGE SQ SCH (06:32)
--- NOTE | 2018-05-11 06:51 | Pulmonology Progress Note ---
Date of Encounter: 05/11/18 Time of Encounter: 06:51 Assessment and Plan (1) Pleural effusion Current Visit: Yes Status: Acute This is concerning for malignant pleural effusion. We will proceed with repeat thoracentesis at [facility] of fluid was taken off I suspect we could do CT scan of the chest which should improve visibility of underlying lung parenchyma May be a candidate for Pleurx catheter based upon reaccumulation rate and diagnosis (2) Metastatic cancer Current Visit: Yes Status: Acute This is concerning for metastatic cancer of unclear etiology. Oncology is following Subjective Principal diagnosis: Pleural Effusion Interval history: No acute events overnight remained hemodynamically stable says his breathing is fine he is anxious to go home Objective PUL Vital signs: Last Vital Signs Temp 98.5 F 05/11/18 03:46 Pulse 96 05/11/18 03:46 Resp 16 05/11/18 03:46 BP 124/78 05/11/18 03:46 Pulse Ox 95 05/11/18 03:46 General appearance: no acute distress ENT: oropharynx moist Neck: supple Effort: normal Auscultation: left: clear, right: diminished breath sounds Cardiovascular: regular rate and rhythm Gastrointestinal: normoactive bowel sounds, soft, non-tender Extremities: no cyanosis, no edema, no clubbing, pink and warm Musculoskeletal: no deformities normal mental status, non-focal exam mood appropriate Results - Laboratory Findings CBC and BMP: 05/11/18 06:26 05/11/18 06:26 PT/INR, D-dimer PT 12.0 Seconds (9.4-12.1) 05/09/18 12:39 Abnormal lab findings: Abnormal lab results Chloride 108 mEq/L (98-107) H 05/10/18 05:42 Glucose 160 mg/dL (70-105) H 05/10/18 05:42 POC Glucose 184 mg/dL (70-99) H 05/10/18 20:30 Calcium 8.1 mg/dL (8.6-10.3) L 05/10/18 05:42 AST 11 Units/L (13-39) L 05/10/18 05:42 ALT 5 Units/L (7-52) L 05/10/18 05:42 Serum Total Protein 5.6 g/dL (6.4-8.9) L 05/10/18 05:42 Albumin 3.1 g/dL (3.5-5.7) L 05/10/18 05:42 Pleural Appearance Cloudy (Clear) A 05/09/18 14:30 - Clinical Findings Intake & Output: Intake & Output 05/10/18 05/10/18 05/11/18 15:59 23:59 07:59 Intake Total 600 / 600 600 / 600 Output Total 600 / 600 Balance 600 / 600 0 / 0 Weight 83 kg Consult Discharge Plan - Plan Referrals: Kassandra Romero MD [Primary Care Provider] -
[2018-05-11 07:12] LABS: Basophils # 0.1 K/mcL (0.0-0.2); Basophils % 1.5 %; Eosinophils # 0.8 K/mcL (0.0-0.6); Eosinophils % 11.4 %; Hematocrit 44.5 % (37.5-50.1); Hemoglobin 14.6 g/dL (12.9-16.9); Immature Granulocytes % 0.4 % (0-4); Lymphocytes # 1.2 K/mcL (0.6-4.6); Lymphocytes % 17.3 %; Mean Corpuscular HGB Conc 32.8 g/dL (31.6-35.5); Mean Corpuscular Hemoglobin 30.7 pg (28.0-33.3); Mean Corpuscular Volume 93.7 fL (83.0-100.0); Monocytes # 0.5 K/mcL (0.0-1.3); Monocytes % 7.3 %; Neutrophils # 4.2 K/mcL (1.6-8.9); Platelet Count 234 K/mcL (140-400); Red Blood Count 4.75 M/mcL (4.19-5.50); Red Cell Distribution Width 12.4 % (11.5-14.5); Segmented Neutrophils % 62.1 %
[2018-05-11 07:35] LABS: BUN/Creatinine Ratio 14 (6-26); Blood Urea Nitrogen 14 mg/dL (8-23); Calcium 8.1 mg/dL (8.6-10.3); Carbon Dioxide 25 mEq/L (23-29); Chloride 107 mEq/L (98-107); Glucose 197 mg/dL (70-105); Osmolality,Calculated 290 (280-300); Potassium 4.1 mEq/L (3.5-5.1); Sodium 137 mEq/L (136-145); eGFR For African Americans > 60 (> 60); eGFR For Non-African Americans > 60 (> 60)
[2018-05-11] MEDS: Insulin LISPRO 300 UNITS/3 ML VIAL SQ SCH ×2 (08:11→11:16)
[2018-05-11 10:56] LABS: Lactate Dehydrogenase 149 Units/L (140-271)
[2018-05-11 11:00] VITALS: BP 144/84
--- NOTE | 2018-05-11 12:27 | Procedure Note ---
Date of procedure: 05/11/18 Pre-op diagnosis: Pleural Effusion Post-op diagnosis: same Procedure: A time-out was completed verifying correct patient, procedure, site, positioning , and special equipment if applicable. The patients <right> side was prepped and draped in a sterile manner after the appropriate infiltration level was confirmed by ultrasound. 1% lidocaine was used anesthetize the surrounding skin. A finder needle was then used to locate fluid and clear yellow fluid was obtained. A 10-blade scalpel used to make the incision. The thoracentesis catheter was then threaded without difficulty. The patient had <1500mL> of abmber fluid removed. A post-procedure chest x-ray was ordered and the fluid will be sent for several studies. No immediate complications Surgeon: Phong Rae Was there an children's nursery assistant present: No Estimated blood loss (cc): 0 Specimen: Cytology Pathology: other (Cytology) Condition: stable Disposition: no change
--- NOTE | 2018-05-11 15:07 | Internal Med Progress Note ---
Date of Encounter: 05/11/18 Time of Encounter: 14:44 - Assessment and plan (1) Pleural effusion Current Visit: Yes Status: Acute (2) Metastatic cancer Current Visit: Yes Status: Acute (3) DMII (diabetes mellitus, type 2) Current Visit: Yes Status: Acute Qualifiers: Diabetes mellitus terminal gauger insulin use: with terminal gauger use Diabetes mellitus complication status: without complication Qualified Code(s): E11.9 - Type 2 diabetes mellitus without complications; Z79.4 - FPC (current) use of insulin - Time Spent With Patient Total time spent is greater than 50% in coordination of care (as documented) at patient's floor/unit and/or counseling patient: - Subjective Interval history: Patient seen and examined at bedside today. No acute changes overnight. Patient reporting he is no longer short of breath. - Constitutional Vitals: Temp Pulse Resp BP Pulse Ox 97.9 F 87 16 144/84 95 05/11/18 10:58 05/11/18 10:58 05/11/18 10:58 05/11/18 10:58 05/11/18 10:58 Internal Medicine: Result - Labs CBC & Chem 7: 05/11/18 06:26 05/11/18 06:26 Labs: Short CBC 05/11/18 Range/Units 06:26 WBC 6.7 (4.3-11.1) K/mcL Hgb 14.6 (12.9-16.9) g/dL Hct 44.5 (37.5-50.1) % Plt Count 234 (140-400) K/mcL Neutrophils # 4.2 (1.6-8.9) K/mcL BMP 05/11/18 06:26 Sodium 137 Potassium 4.1 Chloride 107 Carbon Dioxide 25 BUN 14 Creatinine 0.99 Glucose 197 H Calcium 8.1 L - ABG Interpretation ABG results: PT/INR, D-dimer PT 12.0 Seconds (9.4-12.1) 05/09/18 12:39 - Impressions Impressions Chest X-Ray 05/11/18 12:28 IMPRESSION: Interval decrease in size of right pleural effusion. No pneumothorax. Slightly increasing left basilar atelectasis. D/ / 05/11/2018 13:24:34 Isabella Graham MD / [facility] Interpreting Provider: Isabella Graham MD Chest CT 05/11/18 12:59 IMPRESSION: 1. Decrease in size of previously seen pleural effusion, now small to moderate in size. There is no pneumothorax post thoracentesis. 2. Although the previously seen right perihilar consolidation has improved with decrease in size of the pleural effusion, it has not resolved. As such, an underlying mass cannot be excluded based on this exam. Small right hilar nodes are noted. Recommend follow-up CT chest with contrast to better evaluate the right hilum in 6-8 weeks. 3. Although not completely imaged on the CT of the chest, it can be seen that there is a lytic lesion in the T12 vertebral body suspicious for bone metastasis or myeloma. 4. Indistinct 1.3 cm right hepatic lobe mass. Finding is suspicious for metastasis. 5. Coronary artery disease. D/ / 05/11/2018 14:33:24 Alvarado Rosenbaum MD / formerly [facility] Interpreting Provider: Alvarado Rosenbaum MD Consult Discharge Plan - Plan Referrals: Kassandra Romero MD [Primary Care Provider] -
--- NOTE | 2018-05-11 15:14 | Discharge Summary ---
- NOTES TO OUTPATIENT PROVIDER Notes to Outpatient Provider: Patient admitted for acute onset shortness of breath. Found to have large right-sided pleural effusion suspicious for malignant effusion. Underwent thoracentesis 2 while inpatient. Consultations with oncology, pulmonology. 3 L total of pleural fluid drained and sent for cytology. Pathology remains pending. Patient has been instructed to follow-up with PCP within 1 week of discharge. Patient has follow-up appointment in 1-2 weeks with pulmonology. He will follow with oncology as an outpatient basis. The patient is to have a PET scan this coming Tuesday05/17/18. Orders not resulted at time of discharge: Pending orders 05/11/18 12:28 Cytology [PTH] Routine 05/12/18 04:00 Basic Metabolic Panel AM 0400 Complete Blood Count [HEME] AM 0400 05/13/18 04:00 Basic Metabolic Panel AM 0400 Complete Blood Count [HEME] AM 0400 05/14/18 04:00 Basic Metabolic Panel AM 0400 Complete Blood Count [HEME] AM 0400 05/15/18 04:00 Basic Metabolic Panel AM 0400 Complete Blood Count [HEME] AM 0400 05/16/18 04:00 Basic Metabolic Panel AM 0400 Complete Blood Count [HEME] AM 0400 05/17/18 04:00 Basic Metabolic Panel AM 0400 Complete Blood Count [HEME] AM 0400 Date of Encounter: 05/11/18 Time of Encounter: 15:10 - Discharge Diagnosis (1) Pleural effusion Priority: Primary Status: Acute Assessment and Plan: Presented with acute shortness of breath Imaging revealed large right-sided pleural effusion Thoracentesis completed 2 1.6 L pleural fluid drained during first of thoracentesis; tolu in color, concerning for malignancy. 1.5 L of tolu fluid removed on second thoracentesis, cytology pending final pathology pending Follow-up CT completed, results as follows- 1. Decrease in size of previously seen pleural effusion, now small to moderate in size. There is no pneumothorax post thoracentesis. 2. Although the previously seen right perihilar consolidation has improved with decrease in size of the pleural effusion, it has not resolved. As such, an underlying mass cannot be excluded based on this exam. Small right hilar nodes are noted. Recommend follow-up CT chest with contrast to better evaluate the right hilum in 6-8 weeks. 3. Although not completely imaged on the CT of the chest, it can be seen that there is a lytic lesion in the T12 vertebral body suspicious for bone metastasis or myeloma. 4. Indistinct 1.3 cm right hepatic lobe mass. Finding is suspicious for metastasis. 5. Coronary artery disease. Findings are concerning for metastatic process with liver lesions, and T9-T12 vertebral body lesions Patient of PET scan this coming Tuesday05/17/80. He is to follow with pulmonology in 1-2 weeks. He is to follow with oncology as an outpatient. Hospital course. Patient resting comfortably on room air is in no distress. Medically stable for discharge. He has been instructed to follow-up with PCP within 1 week of discharge. Also, patient informed to return to the ED showed shortness of breath return. This educated on signs and symptoms of pneumothorax. Patient and family at bedside and verbalized understanding. Denies any further questions at this time. (2) Metastatic cancer Priority: Secondary Status: Acute Assessment and Plan: Imaging revealed large right pleural effusion, questionable mass in rt perihilar region, indeterminate liver lesion on CT abdomen/pelvis and concerning finding for bone metastasis. Suspicious for lung primary PET scan scheduled for 05/17/18 To follow with oncology after d/c and f/u with pulmonology Consider liver biopsy if more tissue is needed for diagnosis or additional mutational testing (3) DMII (diabetes mellitus, type 2) Priority: Secondary Status: Acute Assessment and Plan: Continue home diabetic medication at discharge Qualifiers: Diabetes mellitus assisted insulin use: with long term care phlebotomist use Diabetes mellitus complication status: without complication Qualified Code(s): E11.9 - Type 2 diabetes mellitus without complications; Z79.4 - ad terminal makeup operator (current) use of insulin Hospital course: Mr. Francis is a 77 year old male pplease see assessment and plan for ho Discharge discussed with: patient, family, nurse, case management, sales representative consultant - Time Spent with Patient Total time spent providing and/or coordinating discharge services: Less than 30 minutes - Discharge Medications Home Medications: Metformin HCl [Glucophage] 1,000 mg PO BID 05/03/17 [History] Insulin Glargine [Lantus] 14 unit SQ QPM 05/09/18 [History] Allergies/Adverse Reactions: 3 Allergy/AdvReac Type Severity Reaction Status Date / Time No Known Allergies Allergy Verified 07/31/17 14:44 Date of admission: 05/09/18 19:26 Primary care physician: Kassandra Burns Consults: 05/10/18 08:32 Consult to Pulmonology [CONS] Routine Consulting Provider: [facility] [place] Reason for Consult: large rt pleural effusion suspicious for malignancy Time Notified: 08:33 Call Completed: Yes Discharging clinician: Elkin Smith Anticipated date of discharge: 05/11/18 - Constitutional Vitals: Temp Pulse Resp BP Pulse Ox 97.9 F 87 16 144/84 95 05/11/18 10:58 05/11/18 10:58 05/11/18 10:58 05/11/18 10:58 05/11/18 10:58 General appearance: Present: A&O X 3 - Head Head exam: Present: atraumatic, normocephalic - Eye Eye exam: Present: PERRL, conjuntiva pink, sclera anicteric Pupils: Present: PERRL - Neck Neck exam general surgery: Present: supple, trachea midline. Absent: lymphadenopathy - Respiratory Respiratory exam: Present: CTAB. Absent: accessory muscle use, rales, rhonchi, wheezes - Cardiovascular Cardiovascular exam: Present: RRR, +S1, +S2. Absent: diastolic murmur, gallop, rubs, systolic murmur - GI/Abdominal GI/Abdominal exam: Present: normal bowel sounds, soft, no peritoneal signs. Absent: distended, tenderness - Extremities Exam Extremities exam: Present: warm, radial pulses palpable and symmetrical. Absent : calf tenderness, cyanotic, pedal edema - Neurological Exam Neurological exam: Present: CN II-XII intact, oriented X3, no focal deficits. Absent: pronater drift, facial droop, speech deficit - Skin Skin exam: Present: dry, intact - Patient Status Disposition: Home, Self-Care Condition: Good Functional capacity at discharge: independent ambulation Overall status at discharge: patient is progressing back to baseline - Ambulatory Orders Ambulatory Orders: PET CT skull to thigh DX/initi [PE] Time Frame: 05/17/18, Facility: [facility], Location: Radiology - Discharge Instructions Follow Up With: Kassandra Romero MD [Primary Care Provider] - - Diet and Activity Activity: increase activity as tolerated, resume usual activities as tolerated Diet: advance to your usual diet
== END 2018-05-11 16:49 | disposition home or self-care (01) | DRG 181 ==
LOC: 3BNU 12:23 → EMEROO 12:23 → 3BNU 14:32
PROVIDERS: ADMIT Family Medicine; ATTEND Family Medicine